=== PATIENT | male | born 1995 | race Caucasian/White ===

== ENCOUNTER 2024-11-27 06:21 | Outpatient (REF) | payer OTHER, SELFPAY ==
--- NOTE | ~2024-11-27 | US_ITS ---
CLINICAL HISTORY: ABNORMAL FINDINGS IN URINE US kidneys and bladder Comparison: None provided Findings: Right kidney 10.9 cm length. No significant focal abnormality. Left kidney 12.1 cm length. No significant focal abnormality. No bilateral hydronephrosis. Normal bilateral renal echogenicity. The urinary bladder is unremarkable. Prevoid volume 507 mL. Post void volume 28 mL. Bilateral ureteral jets visualized. Impression: No significant abnormalities. Ultrasound prostate Comparison: None provided Findings: Homogeneous echogenic prostate gland noted. Prostate measures 3.7 x 3.2 x 3.2 cm. Prostate volume: 19.5 mL. Impression: No significant abnormality This document has been electronically signed by: Jesse Sanchez MD on 11/27/2024 20:55:04
--- OUTSIDE RECORDS SUMMARY | 2024-11-27 06:24 | XMS_ITS | Clinical Summary ---
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 Not on reinaldo e 07/31/2022 Are you concerned about learning? Not on file 07/31/2022 No 07/31/2022 No 07/31/2022 Digital Access Answer Date Recorded No 08/31/2022 No 08/31/2022 Reliable internet access at home? Not on file 08/31/2022 Device with a working camera? Not on file Sex and Gender Information Value Date Recorded Sex Assigned at Male 06/05/2021 4:13 PM EST Legal Sex Male 4:08 PM EST Gender Identity Male 06/05/2021 4:13 PM EST Sexual Orientation Not on file Last Filed Vital Signs Vital Sign Reading Time Taken Comments Blood Pressure - - Pulse 60 06/05/2021 4:10 PM EST Temperature 36.6 C (97.9 F) 06/05/2021 4:10 PM EST Respiratory Rate 16 06/05/2021 4:10 PM EST Oxygen Saturation 100% 06/05/2021 4:10 PM EST Inhaled Oxygen Concentration - - Weight 74.8 kg (165 lb) 06/05/2021 4:10 PM EST Height 182.9 cm (6') 06/05/2021 4:10 PM EST Body Mass Index 22.38 06/05/2021 4:10 PM EST Plan of Treatment Health Maintenance Due Date Last Done Comments Adult Td,Tdap Booster 1993 DEPRESSION SCREENING 2005 SMOKING Hx and SMOKELESS TOB ACCO SCREENING 2006 HEPATITIS C SCREENING 06/29/2011 HIV ONE-TIME SCREENING (18-6 5 YEARS) 06/29/2011 COVID-19 VACCINE (2023-2 5 season) 2023 HEPATITIS A VACCINES Aged Out No long er eligible based on patient's age to complete this topic HIB VACCINES Aged Out No longer eligi ble based on patient's age to complete this topic MENINGOCOCCAL VACCINES (ACWY) Aged Out No longer eligible based on patient's age to complete this topic MENINGOCOCCAL VACCINES (B) Aged Out N o longer eligible based on patient's age to complete this topic PNEUMOCOCCAL VACCINES (0-49 years) Aged Out No longer eligible based on patient's age to complete this topic Medical Devices Not on file Insurance [employer] ALEXAND[employer] EDWAR[employer] Care Teams Wood Heel Flap Inserter Relationship Specialty Start Date End Date Pcp, Unknown PCP - General 06/05/21 Additional Source Comments The information contained in this document represents components of the legal health record. It is not the complete legal health record.[facility]
== END 2024-11-27 06:22 | disposition home or self-care (01) ==
LOC: HO.UMASIMG 06:21
PROVIDERS: Visit Provider Family Medicine
DX: R30.0 Dysuria (principal); R82.998 Other abnormal findings in urine
CPT/HCPCS: 76770

== ENCOUNTER → 2024-11-27 10:15 | Outpatient (BNV) | payer OTHER, SELFPAY | PROVIDERS: Visit Provider Radiology Diagnostic Radiology | DX: R82.90 Unspecified abnormal findings in urine (principal) | CPT/HCPCS: 76770 ==